=== PATIENT | male | born 1960 | race Caucasian/White ===

== ENCOUNTER 2016-07-19 06:12 | Emergency (ER) | payer OTHER ==
[~2016-07-19] VITALS: Ht 177.8 cm; Wt 91.5 kg
[2016-07-19 06:16] VITALS: Ht 177.8 cm; Wt 91.5 kg
[2016-07-19] MEDS ORDERED: MECL12.574 PO (07:03)
[2016-07-19] MEDS ORDERED: MECLIZINE 12.5 MG TAB PO ONE (07:30)
--- NOTE | 2016-07-19 08:48 | ERD ---
DATE OF SERVICE: HISTORY OF PRESENT ILLNESS: The patient is a 56-year-old male coming in complaining of vomiting 1-1 /2 weeks ago. The patient is also primarily complaining of dizziness. The patient states he has holly d a few episodes of dizziness. He does not know what causes the dizziness to develop or resolve. H e denies any headaches, denies any residual vomiting. His last episode of vomiting was on July 10. He is not taking medications for his symptoms. Denies any traumatic head injuries. Denies any chest pains or trouble breathing. Denies fevers. He states that he feels that the room spins. Th e patient does smoke marijuana and states that occasionally his symptoms or worsened by certain type s of weed. PAST MEDICAL HISTORY: Denies any other medical problems. ALLERGIES: DENIES ALLERGIES TO MEDICATIONS. PAST SURGICAL HISTORY: Denies surgeries. HOSPITALIZATIONS: Denies. REVIEW OF SYSTEMS: A 12-point review of systems was done. Refer to HPI for positives, all other sy stems negative. PHYSICAL EXAMINATION: VITAL SIGNS: Temperature is 98.3, pulse 52, blood pressure is 135/83, respiratory rate 20, O2 satur ation 100% on room air. Pain intensity of 2/10. GENERAL: The patient is well-appearing, well-nourished, no acute distress. HEART: Regular rate and rhythm. No murmurs, clicks, rubs or gallops. No S3 or S4. CHEST: Clear to auscultation bilaterally. There are no rales, wheezes or rhonchi. HEENT: Atraumatic. Conjunctivae are pink. Pupils equal, round, and reactive to light. There is no s cleral icterus. Tympanic membranes clear bilaterally. Oropharynx clear. No nystagmus or photophobia . ABDOMEN: Soft, nontender and nondistended. Good bowel sounds. No rebound or guarding. No gross oliver tonitis. No gross organomegaly or masses. No Landaverde sign or McBurney point tenderness. SKIN: There is no apparent rash or petechia. The skin is warm and dry. NEURO: Alert and oriented. Cranial nerves 2-12 intact. Motor strength in all 4 extremities with 5/5 strength. Sensation grossly intact. Normal speech and gait. Babinski negative. DTR 2+ throughout. DIAGNOSIS: Dizziness. MEDICAL DECISION MAKING: The patient's neuro exam is within normal limits. The patient ambulates a nd has negative Romberg. I do not feel that there is indication for CT scan. I have low suspicion for intracranial hemorrhage or mass effect or neuro deficit. I have low suspicion for cardiac abnor mality, low suspicion for infectious etiology. EMERGENCY DEPARTMENT COURSE: The patient was given meclizine in the ER. DISCHARGE: The patient is discharged stable. The patient was given a prescription for meclizine an d told to follow up with primary care within 1 to 2 days for reevaluation. The patient was told if symptoms progress or worsen to return to the ER. All other questions answered at time of discharge. Discharge summary given at the time of departure. The patient understood and complied with plan. Dictated By: NANCY BERGERON for BRITANY MELVIN/TABBY Conf#: [id number] DID#: [id number]
== END 2016-07-19 07:55 | disposition home or self-care (01) ==
LOC: FTE 06:12
DX: R42 Dizziness and giddiness (principal)
CPT/HCPCS: Z7502; Z7610; 99283

== ENCOUNTER 2017-07-16 05:35 | Emergency (ER) | END 2017-07-16 09:25 | disposition home or self-care (01) ==